=== PATIENT | male | born 1970 | race Caucasian/White ===

== ENCOUNTER → 2024-01-22 06:33 | Day surgery (SDC) | payer OTHER, SELFPAY | LOC: GI 06:33 | PROVIDERS: ATTENDING PHYSICIAN Internal Medicine Gastroenterology | DX: Z12.11 Encounter for screening for malignant neoplasm of colon (principal); D12.0 Benign neoplasm of cecum; K62.1 Rectal polyp; K22.70 Barrett's esophagus without dysplasia; K22.2 Esophageal obstruction; K22.89 Other specified disease of esophagus; K44.9 Diaphragmatic hernia without obstruction or gangrene; K31.7 Polyp of stomach and duodenum; K21.00 Gastro-esophageal reflux disease with esophagitis, without bleeding; R13.14 Dysphagia, pharyngoesophageal phase | CPT/HCPCS: 45385; 43249; 88305 ==

== ENCOUNTER → 2025-01-11 10:39 | Outpatient (REF) | payer OTHER, SELFPAY | LOC: RCS 10:39 | PROVIDERS: ATTENDING PHYSICIAN Internal Medicine Cardiovascular Disease; FAMILY PHYSICIAN Family Medicine | DX: E78.2 Mixed hyperlipidemia (principal) | CPT/HCPCS: 93017 ==

== ENCOUNTER → 2025-01-12 08:52 | Outpatient (REF) | payer SELFPAY | LOC: HWRAD 08:52 | PROVIDERS: ATTENDING PHYSICIAN Internal Medicine Cardiovascular Disease; FAMILY PHYSICIAN Family Medicine | DX: E78.2 Mixed hyperlipidemia (principal) | CPT/HCPCS: 75571 ==